=== PATIENT | female | born 1985 | race Caucasian/White ===

== ENCOUNTER → 2023-03-06 | Outpatient (CLI) | payer BC, SELFPAY ==
[2023-03-10 21:06] LABS: HPV APTIMA, High Risk Negative (Negative)
[2023-03-11 15:18] LABS: HPV Reflexed? YES, CHARGE PATIENT
== END | disposition home or self-care (01) ==
LOC: LABSPEC 10:29
PROVIDERS: PCP Nurse Practitioner Primary Care; Referring Provider Nurse Practitioner Family; Visit Provider Nurse Practitioner Family
DX: Z12.4 Encounter for screening for malignant neoplasm of cervix (principal)
CPT/HCPCS: 87624; 88175; G0145

== ENCOUNTER → 2023-04-01 | Outpatient (CLI) | payer BC, SELFPAY ==
--- NOTE | 2023-04-01 12:44 | RAD_ITS ---
STUDY: X-RAY RIGHT FOOT, GREAT TOE REASON FOR EXAM: Female, 37 years old. TOE INJURY -- RIGHT FIRST TOE TECHNIQUE: 3 views of the right great toe were obtained. COMPARISON: None. FINDINGS: Normal visualized metatarsus. Normal metatarsophalangeal (M.T.P) joint. Normal interphalangeal joint. Normal phalanges. The soft tissue structures are unremarkable. RAD/Toe(s) Min 2 Views IMPRESSION: Normal x-ray of the right great toe. Electronically Signed: Amaury Hardin MD at 12:26 EST ,
== END | disposition home or self-care (01) ==
PROVIDERS: PCP Family Medicine; Referring Provider Family Medicine; Visit Provider Family Medicine
DX: S99.929A Unspecified injury of unspecified foot, initial encounter (principal)
CPT/HCPCS: 73660

== ENCOUNTER → 2024-11-26 | Outpatient (CLI) | payer OTHER, SELFPAY ==
--- NOTE | 2024-11-26 14:48 | RAD_ITS ---
PROCEDURE: SHOULDER MIN 2 VIEWS 11/26/2024 REASON FOR EXAM: SHOULDER PAIN TECHNIQUE: Procedure Code: RADSH Modality: DX Procedure: SHOULDER MIN 2 VIEWS Laterality: COMPARISON: None RAD/Shoulder min 2 Views IMPRESSION: No acute fracture or dislocations. No significant degenerative changes. No acute soft tissue abnormalities. No radiographic foreign body. Reading Location: [id number]
--- NOTE | 2024-11-26 14:48 | RAD_ITS ---
PROCEDURE: SHOULDER MIN 2 VIEWS 11/26/2024 REASON FOR EXAM: SHOULDER PAIN TECHNIQUE: Procedure Code: RADSH Modality: DX Procedure: SHOULDER MIN 2 VIEWS Laterality: COMPARISON: None RAD/Shoulder min 2 Views IMPRESSION: No acute fracture or dislocations. No significant degenerative changes. No acute soft tissue abnormalities. No radiographic foreign body. Reading Location: [id number]
== END | disposition home or self-care (01) ==
LOC: MTRAD 14:48
PROVIDERS: PCP Family Medicine; Referring Provider Family Medicine; Visit Provider Family Medicine
DX: M25.511 Pain in right shoulder (principal)
CPT/HCPCS: 73030

== ENCOUNTER 2025-01-22 07:00 | Outpatient (RCR) | payer OTHER, SELFPAY ==
--- NOTE | 2025-01-01 08:18 | HP.PTEVAL_ITS ---
Patient's Visit Information Visit Information Visit Information: MARICRUZ SAVAGE is a 39 year old F referred to Physical Therapy by ORIANA Champagne with a diagnosis of impingement R shoulder. Date of Evaluation: 01/01/25 Physical Therapist: Davidson Dey, DPT, OCS, CSCS Visit Plan Frequency: 3x /Week Duration: 4-6 Weeks Plan: 3x/week for 3-6 weeks... IE HEEP: hammer theory activity modificaiton and scap circles adn posture , HO given. Treat with US nonthermal to R supra, grade 1-2 g-h mobs, ensure adctivity modificaiton at home verbally, Strengthen RC and scap to HEP when able and pianfree. CFM as needed. Subjective Subjective: H/o shoulder pain. Helping carry something down stps in September with all weight through shoulder R and it hurt adn got weak using hiking pool. Pain is anterior in R shoulder and under scap R. Sometime shoots down arm if sudden movements. Achy at rest. 4-8/10 worse with movement. No numbness or tingling down arm. Saw [facility] and had x ray:OK Basic ADLs hurt but can do them and feels fatigue quickly. Scaled back home activity due to pain. 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 Hobbies: hiking oftenreading cooking and can do all of these, hiking can hurt and uses poles on harder hikes. peloton bike can hurt. Pain R: Pain Intensity (Out of 10): 4 Pain Intensity Range: 4 and 8 Comment: sudden movements makee worse to shoulder. Objective Objective: Walks normal into PT with arms swinging, painful 2/10 at rest. Achy. Teender mod to max palpation at supraspinatus insertion and biceps groove on R. Posturee is forward head and protracted scap B, R wings slightly with arm elevation. Unstable scap with upper arm strength testing. AROM full but pain nd range ext, adduction, flexion, abduction and IR on R. strength triceps 4- nil, biceps painful 4- R. er 3+ an painful R, IR 4- and pain, flexion, abd painful at 90. L 4- and no pain. wrist and elbow 4/5 B. reflexees 2/3 bi and tri snsation WNL to gross light touch B UE. + HK, + neer on R, - drop arm, - ext rotation lag. - drop arm. Balance/Special Test Scores Quick DASH Score: 54.5450 Goals Goal 1:: Painfree at rest Goal Time Frame: 2-4 Weeks Goal 2:: I appropriate home scap and Rc strength without pain Goal Time Frame: 2-4 Weeks Goal 3:: Patient feel 85% better in overall pain and 1/10 at owrst Goal Time Frame: 4-6 Weeks Goal 4:: hike and work without increased pain Goal Time Frame: 4-6 Weeks Goal 5:: quickdash score 15 or less Goal Time Frame: 4-6 Weeks Rehabilitation Potential Physical Therapy Diagnosis: R shouldeer pain limiting comfortable function Rehabilitation Potential: Good Anticipated Interventions Patient/Client Instruction: Educate patient on: Condition and Plan of Care For the Purpose of:: To decrease pain, To increase ROM, To improve nutrient delivery to tissue, To increase tolerance to activity/condition/position and To improve ability of physical actions for home/community/work/leisure Therapeutic Exercise to Include: Strength training, Postural training, Flexibilty training, Passive ROM, Active ROM and Scapular Strength/Stabilization For the Purpose of:: To decrease pain, To improve nutrient delivery to tissue, To improve muscle performance and motor function and To increase tolerance to activity/condition/position Manual Therapy Techniques to Include: Mobilization, Passive ROM and Soft tissue mobilization For the Purpose of:: To decrease swelling/inflammation, To increase ROM and To improve nutrient delivery to tissue Ultrasound (thermal/non thermal): Yes (nonthermal) For the Purpose of:: To decrease pain, To decrease swelling/inflammation and To improve nutrient delivery to tissue Text: Thank you for the opportunity to evaluate your patient. For Medicare and Medicare HMO plans, please review the plan of care and approve it. It will need to be FAXED BACK to us at [phone] for Medicare purposes. For Medicare only, by signing this I certify the plan of care. Please let me know if there are questions or concerns regarding this plan of care. Physician Signature: Date:
--- NOTE | 2025-01-22 07:46 | HP.PTDCSUM ---
Discharge Summary D/C summary: It has been my pleasure to treat MARICRUZ SAVAGE referred by ORIANA Champagne, with the diagnosis of impingement R shoulder for a total of 9 visit(s). Discharge Date: 01/22/25 Please see the following information for a summary of their discharge status. Subjective Subjective: momnts feel better. Pain is still always present. US helps as does icing. Moving better but pain still present. Dull ache intensifies with moving it. Back at gym for TM and it hurt to swing it. Able to focus on avoiding things. Using L arm more. To Feb 02. Pain R: Pain Intensity (Out of 10): 3 Overall Improvement % Improvement: 40 Objective Objective/Function: Full aROM but flexion and er adn IR but painful nd range. R very painful, labral tests mildly positive on R, - ext rotation lag test, - drop arm. Goals Goal 1:: Painfree at rest Goal Progress: Not Progressing Goal 2:: I appropriate home scap and Rc strength without pain Goal Progress: Not Progressing Goal 3:: Patient feel 85% better in overall pain and 1/10 at owrst Goal Progress: Not Progressing Goal 4:: hike and work without increased pain Goal Progress: Not Progressing Goal 5:: quickdash score 15 or less Goal Progress: Not Progressing Plan Plan: d/c , pt back to doctor for next meedical steep. Will continue attempteed activity modification at homee. D/C Information Discharge Comments: Pt back to doctor for next medical step due to lack of improvement, + labral tests. d/c sentence: If there are questions or concerns regarding this patient's physical therapy, please feel free to call me at [phone]. Thank you for the referral of this patient. Sincerely, Davidson Dey, DPT, OCS, CSCS Balance/Gait/Functional tests Balance/Special Test Scores Quick DASH Score: 38.6350 Improvement % Improvement: 40
== END 2025-01-22 09:57 | disposition home or self-care (01) ==
LOC: PT 07:00
PROVIDERS: PCP Family Medicine
DX: S43.401D Unspecified sprain of right shoulder joint, subsequent encounter (principal); M75.41 Impingement syndrome of right shoulder; M25.511 Pain in right shoulder
CPT/HCPCS: 97035; 97110; 97161; 97164